=== PATIENT | female | born 2000 | race Caucasian/White ===

== ENCOUNTER 2019-03-09 19:45 | Emergency (ER) | payer OTHER ==
[~2019-03-09] VITALS: Ht 162.6 cm; Wt 61.2 kg
[2019-03-09 19:50] VITALS: BP 119/77
--- NOTE | 2019-03-09 19:52 | NUR ---
to bed # 05 ambulatory
--- NOTE | 2019-03-09 20:22 | NUR ---
BIB MOTHER C/O ABD PAIN 10/13 + N/V S/P WISDOM TEETH REMOVAL YESTERDAY. PATIENT TOOK ONE NORCO, HAS BEEN TAKING TYLENOL FOR PAIN SINCE SURGERY. VOMITING BEGAN AT 0400, PT HAS NOT BEEN ABLE TO KEEP ANYTHING DOWN. BOWEL SOUNDS ACTIVE IN ALL QUADRANTS. NO DIARRHEA, LAST BM WAS YEST NO PMH, NKA
[2019-03-09] MEDS ORDERED: ONDANSETRON 4 MG/2 ML VIAL IVP ONE (20:25)
[2019-03-09] MEDS ORDERED: KETOROLAC 30 MG/ML VIAL IVP ONE (20:30)
[2019-03-09 20:56] LABS: APPEARANCE,URINE SL CLOUDY (CLEAR); BILIRUBIN,URINE 2+ (NEGATIVE); BLOOD, URINE NEGATIVE (NEGATIVE); COLOR,URINE DARK YELLOW (YELLOW); LEUKOCYTE ESTERASE ,URINE NEGATIVE (NEGATIVE); NITRITE, URINE NEGATIVE (NEGATIVE); PH,URINE >=9.0 (5.0-9.0); UGLUCOSE NEGATIVE (NEGATIVE)
[2019-03-09 20:56] LABS: BASOPHILS # (AUTO) 0.1 K/uL (0.00-0.22); BASOPHILS % (AUTO) 0.4 % (0.0-2.0); HEMOGLOBIN 12.6 g/dL (12.0-16.0); LYMPHOCYTES # (AUTO) 1.3 K/uL (2.5-16.5); LYMPHOCYTES % (AUTO) 9.4 % (20.5-51.1); MEAN CORPUSCULAR HEMOGLOBIN 27 pg (27-31); MEAN CORPUSCULAR HGB CONC 32 g/dL (33-37); MEAN CORPUSCULAR VOLUME 83.4 fL (80-94); MONOCYTES # (AUTO) 0.6 K/uL (0.8-1.0); MONOCYTES % (AUTO) 4.5 % (1.7-9.3); NEUTROPHILS % (AUTO) 85.7 % (42.2-75.2); PLATELET COUNT (AUTO) 294 K/uL (140-450); RED BLOOD CELL COUNT(AUTO) 4.68 MIL/uL (4.20-5.40); RED CELL DISTRIBUTION WIDTH 14.8 % (11.6-13.7)
[2019-03-09 21:11] LABS: ANION GAP 20.3 (8-16); CARBON DIOXIDE 23.2 mmol/L (21-32); CREATININE 0.9 mg/dL (0.6-1.3); POTASSIUM 3.5 mmol/L (3.5-5.1)
[2019-03-09 21:11] LABS: RBC,URINE 0-5 /HPF (0-5); URINE AMORPHOUS URATE 1+ /HPF (None Seen); WBC,URINE 0-5 /HPF (0-5)
[2019-03-09 21:12] LABS: HYALINE CASTS, URINE 0-10 /LPF (None Seen)
[2019-03-09 21:17] LABS: TOTAL BILIRUBIN 0.8 mg/dL (0.0-1.0)
[2019-03-09 21:52] VITALS: BP 115/62
== END 2019-03-09 21:52 | disposition home or self-care (01) ==
LOC: MED 19:45
DX: A08.4 Viral intestinal infection, unspecified (principal)
CPT/HCPCS: 36415; 80053; 81001; 81025; 85025; 87804; 96374; 96375; 99283; J1885; J2405